=== PATIENT | female | born 1965 | race Caucasian/White ===

== ENCOUNTER 2019-12-24 17:53 | Emergency (ER) | payer BC, MEDICARE ==
[~2019-12-24] VITALS: Ht 172.7 cm; Wt 94.1 kg
[2019-12-24 18:36] LABS: BASOPHILS % (AUTO) 1 % (0-1); EOSINOPHILS % (AUTO) 3 % (1-7); LYMPHOCYTES % (AUTO) 30 % (22-44); MEAN CORPUSCULAR HEMOGLOBIN 33.3 pg (27.0-34.8); MEAN CORPUSCULAR HGB CONC 33.9 g/dL (32.4-35.8); MEAN PLATELET VOLUME 8.7 fL (7.4-10.4); MONOCYTES % (AUTO) 8 % (2-9); NEUTROPHILS % (AUTO) 58 % (42-75); PLATELET COUNT 326 x10^3/uL (130-400); RED BLOOD COUNT 4.91 x10^6/uL (3.82-5.3); RED CELL DISTRIBUTION WIDTH 13.8 % (9.6-15.2)
[2019-12-24 18:39] LABS: MD NO
[2019-12-24 18:44] LABS: ALANINE AMINOTRANSFERASE 53 U/L (12-78); ALBUMIN 4.3 g/dL (3.4-5.0); ANION GAP 5 mmol/L (5-15); CALCIUM 9.4 mg/dL (8.5-10.1); CHLORIDE 104 mmol/L (98-107); CREATININE 0.81 mg/dL (0.55-1.02)
[2019-12-24 18:48] LABS: ALKALINE PHOSPHATASE 72 U/L (45-117); BILIRUBIN,TOTAL 0.4 mg/dL (0.2-1.0); TOTAL PROTEIN 8.5 g/dL (6.4-8.2)
--- NOTE | 2019-12-24 19:59 | NUR ---
Patient comes in with complaints of new "lumps on lower legs" Patient states she had an epidural last friday to help with chronic back pain, to hold her over til her surgery. Patient stated that since then she has developed these "lumps" which appeared to be 2 small soft tissue swelling. One on the top of her right foot and one on the back of her left ankle. Patient ambulatory at this time with steady gait. VSS, Call junior within reach.
[2019-12-24 20:43] VITALS: BP 126/98
== END 2019-12-24 20:46 | disposition home or self-care (01) ==
LOC: ED 20:34
DX: R60.0 Localized edema (principal); R20.2 Paresthesia of skin; R11.0 Nausea; F17.200 Nicotine dependence, unspecified, uncomplicated
CPT/HCPCS: 36415; 80053; 83880; 85025; 93970; 99284